=== PATIENT | female | born 1965 ===

== ENCOUNTER 2019-06-26 14:33 | Emergency (ER) | payer MEDICARE, OTHER ==
[2019-06-26 15:02] VITALS: BP 107/76
--- NOTE | 2019-06-26 15:12 | UC ---
Abdominal Pain Female HPI - HPI Summary HPI Summary: Pt presents with c/o sudden onset of generalized abdominal pain and loose bright red , bloody like , stool that began 3 days ago. Pt states that stool is intermittently bloody or filled with mucous. Pt states that she has pelvic pressure and pain, decreased appetite, and generalized malaise. Pt has hx of diverticulitis. - History of Current Complaint Chief Complaint: UCAbdominalPain Stated Complaint: BACK PAIN,STOMACH CRAMPING,DIARHHEA Time Seen by Provider: 06/26/19 14:53 Hx Obtained From: Patient ?: No Onset/Duration: Sudden Onset, Lasting Days, Still Present, Worse Since - onset Timing: Constant Severity Initially: Moderate Severity Currently: Moderate Pain Intensity: 8 Location: Diffuse Radiates: No Character: Aching, Colicy, Cramping, Dull, Sharp Aggravating Factor(s): Food Alleviating Factor(s): Nothing Associated Signs and Symptoms: Positive: Blood in Stool, Decreased Appetite, Diarrhea - Risk Factors Ectopic Risk Factor: Negative Ovarian Torsion Risk Factor: Negative Allergies/Adverse Reactions: Allergies Allergy/AdvReac Type Severity Reaction Status Date / Time No Known Allergies Allergy Verified 06/26/19 15:02 Home Medications: Home Medications Acetaminophen [Tylenol Extra Strength] 1,000 g PO ONCE 06/26/19 [History Confirmed 06/26/19] PMH/Surg Hx/FS Hx/Imm Hx Previously Healthy: Yes GI/ History: Diverticulitis - Surgical History Surgical History: Yes Surgery Procedure, Year, and Place: partial hysterectomy. spinal cord stimulator. tubal ligation. L bunion - Family History Known Family History: Positive: Cardiac Disease - Social History Lives: With Family Alcohol Use: None Substance Use Type: None Smoking Status (MU): Light Every Day Tobacco Smoker Amount Used/How Often: 1/3 ppd Have You Smoked in the Last Year: Yes Review of Systems All Other Systems Reviewed And Are Negative: Yes Constitutional: Positive: Fatigue Skin: Positive: Negative Eyes: Positive: Negative ENT: Positive: Negative Respiratory: Positive: Negative Cardiovascular: Positive: Negative Gastrointestinal: Positive: Abdominal Pain, Diarrhea Genitourinary: Positive: Negative Motor: Positive: Negative Neurovascular: Positive: Negative Musculoskeletal: Positive: Negative Neurological: Positive: Weakness Psychological: Positive: Negative Is Patient Immunocompromised?: No Physical Exam Triage Information Reviewed: Yes Appearance: Ill-Appearing, Pain Distress Vital Signs: Initial Vital Signs Temp 97.1 F 06/26/19 14:54 Pulse 82 06/26/19 14:54 Resp 19 06/26/19 14:54 BP 107/76 06/26/19 14:54 Pulse Ox 100 06/26/19 14:54 Vital Signs Reviewed: Yes Eye Exam: Normal ENT Exam: Normal Dental Exam: Normal Neck exam: Normal Respiratory Exam: Normal Cardiovascular Exam: Normal Abdomen Description: Positive: Guarding Bowel Sounds: Positive: Present Musculoskeletal Exam: Normal Neurological Exam: Normal Psychological Exam: Normal Skin Exam: Normal Abd Pain Female Course/Dx - Course Course Of Treatment: I discussed with the pt the need to have further testing and evaluation at a higher level of care facility. Pt verbalized understanding and agreed to plan of care. I recommended that the pt go directly to the closest ER - Differential Dx/Diagnosis Differential Diagnosis: Diverticulitis, Irritable Bowel Syndrome Provider Diagnosis: Abdominal pain Discharge ED - Sign-Out/Discharge Documenting (check all that apply): Patient Departure All imaging exams completed and their final reports reviewed: No Studies - Discharge Plan Condition: Stable Disposition: HOME-RECOMMEND TO ED Patient Education Materials: Acute Abdominal Pain (ED) Referrals: Keith Zapata MD [Primary Care Provider] - If Needed Additional Instructions: Please go directly to the closest emergency room after leaving this facility. - Billing Disposition and Condition Condition: STABLE Disposition: Home-Recommend to ED
== END 2019-06-26 15:20 | disposition home health service (06) ==
LOC: UCCORT 14:33
DX: R10.84 Generalized abdominal pain (principal); R19.7 Diarrhea, unspecified; R53.82 Chronic fatigue, unspecified; R63.8 Other symptoms and signs concerning food and fluid intake; F17.210 Nicotine dependence, cigarettes, uncomplicated; Z87.19 Personal history of other diseases of the digestive system
CPT/HCPCS: 99202; G0463